=== PATIENT | female | born 1980 | race Caucasian/White ===

== ENCOUNTER 2018-04-12 14:05 | Emergency (ER) | payer OTHER, SELFPAY ==
[2018-04-12 14:30] VITALS: BP 134/87; PULSE 82; RESP 16; TEMP 37.2; BMI 26.7
--- NOTE | 2018-04-12 14:34 | DI.RAD.S_ITS ---
PROCEDURE: XR FOOT RT MIN 3V INDICATIONS: injury to right 4TH toe TECHNIQUE: 3 views of the foot were acquired. COMPARISON: None. FINDINGS: Bones: There is minimally displaced, transverse oriented fracture involving the fourth distal phalanx. No suspicious bony lesions. Soft tissues: No tibiotalar joint effusion. Achilles tendon appears normal. IMPRESSION: Minimally displaced fourth distal phalangeal fracture. Dictated by: Lindsey Wright M.D. on 04/12/2018 at 15:07 Approved by: Lindsey Wright M.D. on 04/12/2018 at 15:08
--- NOTE | 2018-04-12 17:01 | ED.LOWEXIN ---
HPI - Extremity Injury (Lower) <KELSI England - Last Filed: 04/12/18 23:11> General Chief Complaint: Extremity Injury, Lower Stated Complaint: DROPPED METAL CLAMP ON RIGHT TOE Time Seen by Provider: 04/12/18 17:00 Source: patient Mode of arrival: ambulatory Limitations: no limitations History of Present Illness HPI Narrative: 38-year-old female here for complaint of pain into her right 4th toe after driving a metal object on it earlier today while she was in the garage. She denies any other injuries. She reports increased pain with ambulation. She reports she does have a open lesion to the top of the toe. She does not remember her last tetanus. Pain is limited to the right toe. No other concerns or complaints at this time. MD complaint: other Related Data Allergies Allergy/AdvReac Type Severity Reaction Status Date / Time No Known Drug Allergies Allergy Verified 04/12/18 14:35 Review of Systems <KELSI England - Last Filed: 04/12/18 23:11> Constitutional Denies chills, Denies fever(s), Denies lethargy and Denies weakness Eyes Denies change in vision, Denies eye discharge, Denies irritation and Denies loss of vision ENT Ears, Nose, Mouth, and Throat: Denies change in voice, Denies neck pain and Denies sore throat Cardiovascular Denies chest pain, Denies irregular heart rhythm, Denies lightheadedness, Denies palpitations, Denies dyspnea, Denies dyspnea on exertion and Denies orthopnea Respiratory Denies cough, Denies dyspnea, Denies dyspnea on exertion and Denies wheezing Gastrointestinal Gastrointestinal: Denies abdominal pain, Denies change in bowel habits, Denies diarrhea, Denies nausea and Denies vomiting Genitourinary Denies hematuria, Denies flank pain, Denies urinary incontinence and Denies urinary urgency Musculoskeletal Denies neck pain Comments: Pain to right 4th toe after dropping metal object on it Integumentary/Breasts Denies pruritus, Denies erythema, Denies rash and Denies wounds Neurologic Denies confusion, Denies loss of vision and Denies weakness Psychiatric Denies anxiety, Denies confusion, Denies depression, Denies homicidal ideation and Denies suicidal ideation Endocrine Denies palpitations Allergic/Immunologic Denies wheezing Exam <KELSI England Last Filed: 04/12/18 23:11> Initial Vital Signs Initial Vital Signs: Vital Signs Temperature 98.9 F 04/12/18 14:30 Pulse Rate 82 04/12/18 14:30 Respiratory Rate 16 04/12/18 14:30 Blood Pressure 134/87 H 04/12/18 14:30 Const General: cooperative and well developed Nutritional Appearance: well nourished Orientation: alert, awake, oriented x3 and not confused [facility] Mouth: oral mucosae normal and moist mucous membranes Eyes Conjunctivae: conjunctivae normal Sclera: sclerae normal Pupils: PERRL EOM: EOM intact bilaterally Resp Effort & Inspection: normal respiratory effort, able to speak in complete sentences, no respiratory distress and no use of accessory muscles Auscultation: clear to auscultation bilaterally, no rales, no rhonchi and no wheezes Cardio Rate: regular rate Rhythm: regular rhythm Heart Sounds: no click, no gallops, no murmurs and no rubs Skin General: no rashes or lesions noted, No jaundice and No petechiae Neuro General: alert, oriented x3, gait normal and no focal motor deficits Speech: speech normal Extrem Other: Swelling and ecchymosis to right 4th toe. Distal sensation is intact. Patient does have range of motion of the right 4th toe. Distal cap refill less than 2 sec. Abrasion to dorsal aspect of the toe just proximal to the nail bed. Does not appear to be any injury to the nail bed itself. <John Hernandez MD - Last Filed: 04/14/18 08:53> Initial Vital Signs Initial Vital Signs: Vital Signs Temperature 98.9 F 04/12/18 14:30 Pulse Rate 82 04/12/18 14:30 Respiratory Rate 16 04/12/18 14:30 Blood Pressure 134/87 H 04/12/18 14:30 Course <KELSI England - Last Filed: 04/12/18 23:11> Orders Ordered: Discontinued Medications Diphtheria/Tetanus/Acell Pertussis (Adacel) 0.5 ml IM .ONCE ONE Stop: 04/12/18 17:25 Last Admin: 04/12/18 17:49 Dose: 0.5 ml Ibuprofen (Advil) 400 mg PO NOW ONE Stop: 04/12/18 17:25 Last Admin: 04/12/18 17:50 Dose: 400 mg Vital Signs - 8 hr 08/04/18 18:17 04/12/18 18:18 Pulse Rate 75 Pulse Rate [Right Dorsalis Pedis] 74 Respiratory Rate 14 Blood Pressure 133/81 H Pulse Oximetry 100 <John Hernandez MD - Last Filed: 04/14/18 08:53> Orders Ordered: Discontinued Medications Diphtheria/Tetanus/Acell Pertussis (Adacel) 0.5 ml IM .ONCE ONE Stop: 04/12/18 17:25 Last Admin: 04/12/18 17:49 Dose: 0.5 ml Ibuprofen (Advil) 400 mg PO NOW ONE Stop: 04/12/18 17:25 Last Admin: 04/12/18 17:50 Dose: 400 mg Vital Signs - 8 hr 04/12/18 18:17 04/12/18 18:18 Pulse Rate 75 Pulse Rate [Right Dorsalis Pedis] 74 Respiratory Rate 14 Blood Pressure 133/[address] [facility] - Extremity Injury (Lower) <KELSI England - Last Filed: 04/12/18 23:11> Imaging Data foot: Radiologist's impression: XRay Report Signed Patient: LEE CAMACHO MR#: [id number] : 1980 Acct:[id number] Age/Sex: 38 / F Date of Service: 04/12/18 Loc: ED Accession Number: [id number] Procedure: XR foot RT min 3V Ordering Provider: John Hernandez M.D. PROCEDURE: XR FOOT RT MIN 3V INDICATIONS: injury to right 4TH toe TECHNIQUE: 3 views of the foot were acquired. COMPARISON: None. FINDINGS: Bones: There is minimally displaced, transverse oriented fracture involving the fourth distal phalanx. No suspicious bony lesions. Soft tissues: No tibiotalar joint effusion. Achilles tendon appears normal. IMPRESSION: Minimally displaced fourth distal phalangeal fracture. Dictated by: Lindsey Wright M.D. on 04/12/2018 at 15:07 Approved by: Lindsey Wright M.D. on 04/12/2018 at 15:08 [facility] Narrative Medical decision making narrative: X-ray shows mildly displaced distal phalangeal fracture to the right 4th toe. There is an abrasion to the dorsal aspect of the toe however do not suspect open fracture. Wound was irrigated with 300 mL of normal saline and dressed with bacitracin and dressing. Toe was oanh-taped to adjacent toe for splinting. She is also placed in a postop shoe for comfort and support while ambulating. Tetanus was updated in the emergency room today. [id number] Tylenol or Motrin as needed for any discomfort. Ice and elevation help with any swelling. Follow up primary care provider later this week for re-evaluation. For any worsening symptoms return emergency room. Discharge Plan Departure Patient Disposition: Home, Self-Care Clinical Impression: Fracture of toe of right foot Discharge Date/Time: 04/12/18 18:19 Interventions: ED Discharge Assessment Last Done: 04/12/18 18:18 Instructions: DI for Toe Fracture Activity Restrictions/Additional Instructions: X-ray of the right toes shows that she of a fracture to 4th toe. Oanh tape toe as shown daily to help with comfort and support. Wear postop shoe as directed also for comfort and support while ambulating. Use [id number] Tylenol or Motrin as needed for any discomfort. Dress wound to tap the toe with bacitracin and dressing daily until healed. Follow up with her primary care provider later this week for re-evaluation and ensure it doing better. For any worsening symptoms return to the emergency room. Tetanus was updated emergency room today. Referrals: [facility] [Provider Group] <John Hernandez MD - Last Filed: 04/14/18 08:53> Sign Out Provider Sign Out Attestation: The PA/SERVER ADMINISTRATOR functioned independently for the care of this pt, I was available, but not asked to participate in care. I am unable to determine appropriateness of management without personally examining the pt.
[2018-04-12] MEDS: TET,DIPH,PERTUSS(ACELL),VAC/PF 0.5 ML SYRINGE IM (17:49)
[2018-04-12] MEDS: IBUPROFEN 400 MG TABLET PO (17:50)
[2018-04-12 18:17] VITALS: PULSE 74
[2018-04-12 18:18] VITALS: BP 133/81; PULSE 75; RESP 14; O2SAT 100
== END 2018-04-12 18:19 | disposition home or self-care (01) ==
PROVIDERS: Emergency Provider Nurse Practitioner Family
DX: S92.911A Unspecified fracture of right toe(s), initial encounter for closed fracture (principal); W20.8XXA Other cause of strike by thrown, projected or falling object, initial encounter
CPT/HCPCS: 29550; 73630; 99283; 90715

== ENCOUNTER → 2022-06-21 11:52 | Outpatient (CLI) | payer OTHER, SELFPAY | PROVIDERS: Family Provider Physician Assistant; PCP Physician Assistant; Referring Provider Physician Assistant; Visit Provider Physician Assistant | DX: R20.0 Anesthesia of skin (principal) | CPT/HCPCS: 95886; 95911 ==

== ENCOUNTER 2022-07-30 14:55 | Emergency (ER) | payer OTHER, SELFPAY ==
[2022-07-30 15:36] VITALS: BP 163/97; PULSE 86; RESP 16; TEMP 37; O2SAT 98; BMI 27.4
--- NOTE | 2022-07-30 16:50 | PC.NURSE ---
1550 After discussion of triage with Dr Dsouza, Spoke with Dr Ruiz's office, scheduled appointment for 0810am for patient. Informed patient that Dr Ruizs office could see her tomorrow for complete eye exam, informed patient of approximate wait time in ER. Patient stood up I am just going to leave you obviously don't want to help me and can't do what I need Patient left triage, attempted to explain to patient and spouse that was not the intention of this conversation, spouse apologized and stated understanding. Patient spouse took appointment information for Dr Ruiz's office, with awareness of need to get pre authorization of for appointment.
== END 2022-07-30 16:00 | disposition left against medical advice (07) ==
PROVIDERS: Emergency Provider Emergency Medicine; Family Provider Physician Assistant; PCP Physician Assistant
CPT/HCPCS: 99281

== ENCOUNTER → 2024-12-25 09:43 | Outpatient (CLI) | payer OTHER, SELFPAY | PROVIDERS: Family Provider Physician Assistant; PCP Nurse Practitioner Family; Referring Provider Nurse Practitioner Family; Visit Provider Nurse Practitioner Family | DX: J02.9 Acute pharyngitis, unspecified (principal) | CPT/HCPCS: 87070 ==

== ENCOUNTER → 2024-12-25 09:58 | Outpatient (CLI) | payer OTHER, SELFPAY ==
--- NOTE | 2024-12-25 10:00 | DI.RAD.S_ITS ---
PROCEDURE: XR CHEST 2V INDICATIONS: cough TECHNIQUE: 2 views of the chest were acquired. COMPARISON: None. FINDINGS: Surgical changes and devices: None. Lungs and pleura: Lungs are clear. No pleural effusions or pneumothorax. Mediastinum: Mediastinal contours are normal. Heart size is normal. Bones and chest wall: No suspicious bony abnormalities. Soft tissues appear unremarkable. IMPRESSION: No acute cardiopulmonary pathology. Dictated by: Mt Reese M.D. on 12/25/2024 at 10:23 Approved by: Mt Reese M.D. on 12/25/2024 at 10:23
== END ==
PROVIDERS: Family Provider Physician Assistant; PCP Nurse Practitioner Family; Referring Provider Nurse Practitioner Family; Visit Provider Nurse Practitioner Family
DX: R05.1 Acute cough (principal); J02.9 Acute pharyngitis, unspecified
CPT/HCPCS: 71046; 87070